=== PATIENT | female | born 1965 | race Caucasian/White ===

== ENCOUNTER 2021-04-09 23:52 | Inpatient (IN) | payer OTHER ==
[2021-04-10 00:17] VITALS: BMI 24.0
[2021-04-10] MEDS ORDERED: LACTATED RINGERS SOLUTION 1000 ML INFUS.BAG IV ONE (01:06)
[2021-04-10] MEDS ORDERED: OXYMETAZOLINE 0.05% NASAL SOLUTION 15 ML BOTTLE NS ONE ×2 (01:07→01:09)
[2021-04-10] MEDS ORDERED: morphine SULFATE IMMEDIATE RELEASE 30 MG TAB PO ONE (01:18)
[2021-04-10] MEDS ORDERED: morphine SULFATE IMMEDIATE RELEASE 30 MG TAB ONE (01:21)
[2021-04-10 01:46] LABS: HEMATOCRIT 40.2 % (32.4-45.2); HEMOGLOBIN 13.9 GM/dL (10.7-15.3); MCH 31.5 pg (25.7-33.7); MCHC 34.6 g/dl (32.0-36.0); PLATELET COUNT 203 10^3/uL (134-434); RBC 4.42 M/mm3 (3.60-5.2); RDW 12.9 % (11.6-15.6); WHITE BLOOD COUNT 8.3 K/mm3 (4.0-10.0)
[2021-04-10 01:47] LABS: BASO % 0.5 % (0-2.0); EOS % 1.4 % (0-4.5); LYMPH % 16.7 % (8-40); MEAN PLT VOLUME 6.7 fl (7.5-11.1); MONO % 4.3 % (3.8-10.2); NEUT % 77.1 % (42.8-82.8)
[2021-04-10 02:07] LABS: CHLORIDE 111 mmol/L (98-107); SODIUM 145 mmol/L (136-145)
[2021-04-10 02:09] LABS: CALCIUM 8.5 mg/dL (8.5-10.1)
[2021-04-10 02:10] LABS: ALBUMIN 3.7 g/dl (3.4-5.0); ANION GAP 7 MMOL/L (8-16); BLOOD UREA NITROGEN 20.9 mg/dL (7-18); CO2 27 mmol/L (21-32); GLUCOSE,RANDOM 108 mg/dL (74-106)
[2021-04-10 02:13] LABS: CREATININE 0.8 mg/dL (0.55-1.3); SGOT/AST 42 U/L (15-37); SGPT/ALT 59 U/L (13-61)
[2021-04-10 02:15] LABS: BILIRUBIN,TOTAL 0.3 mg/dL (0.2-1); TOT PROT 7.2 g/dl (6.4-8.2)
[2021-04-10 02:16] LABS: ALK PHOS 85 U/L (45-117)
[2021-04-10] MEDS ORDERED: POLYETHYLENE GLYCOL (HEALTHYLAX) 3350 17 GM PACKET PO PRN (02:34)
[2021-04-10] MEDS ORDERED: DEXTROSE 5%-NORMAL SALINE 1,000 ML IV SCH (02:45)
[2021-04-10] MEDS ORDERED: ACETAMINOPHEN INJECTION 100 ML IVPB ONE (03:35)
[2021-04-10] MEDS: ACETAMINOPHEN 1000 MG/100 ML VIAL IVPB PRN ×3 (03:37→16:43)
[2021-04-10] MEDS ORDERED: diazePAM 5 MG TABLET PO ONE (04:24)
[2021-04-10] MEDS ORDERED: ONDANSETRON 4 MG/2 ML VIAL IVPUSH PRN (08:34)
[2021-04-10] MEDS ORDERED: LORazepam 2 MG/ML SDV VIAL IVPUSH PRN (08:42)
[2021-04-10 08:55] LABS: BASO % 0.5 % (0-2.0); EOS % 1.8 % (0-4.5); HEMATOCRIT 34.6 % (32.4-45.2); HEMOGLOBIN 11.8 GM/dl (10.7-15.3); LYMPH % 21.5 % (8-40); MCH 31.4 pg (25.7-33.7); MCHC 34.1 g/dl (32.0-36.0); MEAN PLT VOLUME 7.1 fl (7.5-11.1); MONO % 9.1 % (3.8-10.2); NEUT % 67.1 % (42.8-82.8); PLATELET COUNT 168 10^3/uL (134-434); RBC 3.76 M/mm3 (3.60-5.2); RDW 11.8 % (11.6-15.6); WHITE BLOOD COUNT 6.7 K/mm3 (4.0-10.8)
[2021-04-10 09:01] LABS: ANION GAP 10 MMOL/L (8-16); CALCIUM 8.4 mg/dl (8.5-10); CHLORIDE 106 mmol/L (98-107); CO2 22 mmol/L (21-32); CREATININE 0.6 mg/dl (0.55-1.3); GLUCOSE,RANDOM 87 mg/dl (74-106); SODIUM 138 mmol/L (136-145)
[2021-04-10] MEDS ORDERED: THIAMINE HCL 200 MG/2 ML VIAL IVPB ONE ×2 (09:15→14:45)
[2021-04-10] MEDS ORDERED: POTASSIUM CHLORIDE TABS 20 MEQ TABLET.ER (FP) PO ONE (09:15)
[2021-04-10 09:29] LABS: ACTIVATED PTT 27.8 SECONDS (25.2-36.5); INR 1.04 (0.82-1.09); PROTHROMBIN TIME (PATIENT) 11.5 SEC (10.2-13.0)
[2021-04-10] MEDS: DEXTROSE 5%-NORMAL SALINE 1,000 ML IV SCH (09:40)
[2021-04-10] MEDS ORDERED: THIAMINE HCL 100 MG TABLET (FP) PO SCH (10:00)
[2021-04-10] MEDS: ENOXAPARIN NA (PORCINE) 40 MG/0.4 ML DISP.SYRIN SQ SCH (14:26)
[2021-04-10] MEDS: FLUoxetine HCL 20 MG CAPSULE PO SCH (14:27)
[2021-04-10] MEDS: FOLIC ACID 1 MG TABLET (FP) PO SCH (14:27)
[2021-04-10] MEDS: MULTIVITAMINS (DAILY MVI) TABLET (FP) PO SCH (14:27)
[2021-04-10] MEDS: metoPROLOL SUCCINATE 25 MG TAB.SR.24H (FP) PO SCH (14:27)
[2021-04-10] MEDS ORDERED: MAGNESIUM SULF 50% (8.12 MEQ/2 ML-1 GM VIAL) IVPB ONE (15:58)
[2021-04-10] MEDS ORDERED: OXYMETAZOLINE 0.05% NASAL SOLUTION 15 ML BOTTLE NS PRN (20:11)
[2021-04-10] MEDS: KETOROLAC TROMETHAMINE 15 MG/ML VIAL IVPUSH PRN (20:31)
[2021-04-10] MEDS: ATORVASTATIN CA 10 MG TABLET (FP) PO SCH (21:25)
[2021-04-10] MEDS: MONTELUKAST NA 10 MG TABLET PO SCH (21:25)
[2021-04-10] MEDS ORDERED: clonazePAM 0.5 MG TABLET PO SCH ×2 (22:00)
[2021-04-10] MEDS ORDERED: traZODone HCL 50 MG TABLET (FP) PO SCH ×2 (22:00)
[2021-04-11] MEDS: ACETAMINOPHEN 1000 MG/100 ML VIAL IVPB PRN ×3 (00:39→17:55)
[2021-04-11] MEDS: KETOROLAC TROMETHAMINE 15 MG/ML VIAL IVPUSH PRN (06:11)
[2021-04-11 08:01] LABS: CALCIUM 8.3 mg/dl (8.5-10); CREATININE 0.7 mg/dl (0.55-1.3); MAGNESIUM 2.1 mg/dL (1.8-2.4)
[2021-04-11] MEDS: THIAMINE HCL 100 MG TABLET (FP) PO SCH (09:20)
[2021-04-11] MEDS: FOLIC ACID 1 MG TABLET (FP) PO SCH (09:21)
[2021-04-11] MEDS: MULTIVITAMINS (DAILY MVI) TABLET (FP) PO SCH (09:21)
[2021-04-11] MEDS: metoPROLOL SUCCINATE 25 MG TAB.SR.24H (FP) PO SCH (09:21)
[2021-04-11] MEDS: ENOXAPARIN NA (PORCINE) 40 MG/0.4 ML DISP.SYRIN SQ SCH (09:41)
[2021-04-11] MEDS: FLUoxetine HCL 20 MG CAPSULE PO SCH (09:41)
[2021-04-11] MEDS: DEXTROSE 5%-NORMAL SALINE 1,000 ML IV SCH (09:42)
[2021-04-11 09:56] LABS: ALBUMIN 3.4 g/dl (3.4-5.0); BILIRUBIN,TOTAL 0.6 mg/dl (0.2-1); TOT PROT 5.8 g/dl (6.4-8.2)
[2021-04-11 10:00] LABS: BILIRUBIN,DIRECT 0.1 mg/dL (0.0-0.2)
[2021-04-11] MEDS ORDERED: LORazepam 1 MG TABLET PO PRN (10:36)
[2021-04-11] MEDS ORDERED: PNEUMOCOCCAL 23 VACCINE 0.5 ML VIAL IM ONE (11:00)
[2021-04-11] MEDS: LORazepam 1 MG TABLET PO SCH ×3 (11:41→22:47)
[2021-04-11] MEDS ORDERED: FLU VACC QS2021-22(6MOS UP)/PF 60 MCG/0.5 ML SYRINGE IM ONE (12:25)
[2021-04-11] MEDS ORDERED: PNEUMOC 13-VAL CONJ-DIP CRM/PF 0.5 ML DISP.SYRIN IM ONE (12:25)
[2021-04-11] MEDS ORDERED: LACTATED RINGERS SOLUTION 1,000 ML/1,000 ML INFUS.BAG IV SCH (13:15)
[2021-04-11] MEDS ORDERED: LIDOCAINE HCL 1%, 10 MG/ML (20ML VIAL) ONE (16:09)
[2021-04-11] MEDS ORDERED: EPINEPHrine/PF 1 MG/1 ML (1:1,000) AMPULE ONE (16:09)
[2021-04-11] MEDS ORDERED: LIDOCAINE 1%/EPI 1:100000 (20 ML MULTI DOSE VIAL) ONE (16:11)
[2021-04-11] MEDS ORDERED: ROCURONIUM BROMIDE 50 MG/5 ML SYRINGE ONE (16:16)
[2021-04-11] MEDS ORDERED: MIDAZOLAM HCL 2 MG/2 ML SINGLE DOSE VIAL ONE (16:16)
[2021-04-11] MEDS ORDERED: SUCCINYLCHOLINE CHLORIDE 200 MG/10 ML SYRINGE ONE (16:16)
[2021-04-11] MEDS ORDERED: LIDOCAINE 1% P/F 10 MG/ML VIAL ONE (16:19)
[2021-04-11] MEDS ORDERED: DEXMEDETOMIDINE HCL 200 MCG/2 ML IVPB ONE (16:19)
[2021-04-11] MEDS ORDERED: NEOSTIGMINE METHYLSULFATE 0.5 MG/1 ML - 10 ML MDV ONE (16:56)
[2021-04-11] MEDS ORDERED: ACETAMINOPHEN INJECTION 100 ML IVPB ONE (17:57)
[2021-04-11] MEDS ORDERED: ONDANSETRON 4 MG/2 ML VIAL ONE (17:59)
[2021-04-11] MEDS ORDERED: ceFAZolin SODIUM 1 GM VIAL ONE (20:51)
[2021-04-11] MEDS ORDERED: DEXTROSE 5%-WATER - 50 ML IVPB ONE (20:52)
[2021-04-11] MEDS: MONTELUKAST NA 10 MG TABLET PO SCH (20:59)
[2021-04-11] MEDS: ATORVASTATIN CA 10 MG TABLET (FP) PO SCH (21:00)
[2021-04-11] MEDS: CEFAZOLIN 1 GM in DEXTROSE 5%-WATER - 1 GM/50 ML IVPB IVPB SCH (21:56)
[2021-04-12] MEDS: oxyCODONE HCL 5 MG TABLET PO PRN ×2 (02:05→08:54)
[2021-04-12] MEDS ORDERED: ceFAZolin SODIUM 1 GM VIAL ONE ×4 (04:39→22:31)
[2021-04-12] MEDS ORDERED: DEXTROSE 5%-WATER - 50 ML IVPB ONE ×4 (04:40→22:31)
[2021-04-12] MEDS: CEFAZOLIN 1 GM in DEXTROSE 5%-WATER - 1 GM/50 ML IVPB IVPB SCH ×4 (05:22→22:35)
[2021-04-12] MEDS: LORazepam 1 MG TABLET PO SCH ×4 (05:22→22:36)
[2021-04-12] MEDS: FOLIC ACID 1 MG TABLET (FP) PO SCH (09:02)
[2021-04-12] MEDS: THIAMINE HCL 100 MG TABLET (FP) PO SCH (09:02)
[2021-04-12] MEDS: FLUoxetine HCL 20 MG CAPSULE PO SCH (09:02)
[2021-04-12] MEDS: MULTIVITAMINS (DAILY MVI) TABLET (FP) PO SCH (09:03)
[2021-04-12] MEDS: metoPROLOL SUCCINATE 25 MG TAB.SR.24H (FP) PO SCH (09:03)
[2021-04-12] MEDS: POLYETHYLENE GLYCOL (HEALTHYLAX) 3350 17 GM PACKET PO SCH (10:59)
[2021-04-12] MEDS: ENOXAPARIN NA (PORCINE) 40 MG/0.4 ML DISP.SYRIN SQ SCH (11:35)
[2021-04-12] MEDS ORDERED: PNEUMOCOCCAL 23 VACCINE 0.5 ML VIAL IM ONE (12:00)
[2021-04-12] MEDS: ACETAMINOPHEN 1000 MG/100 ML VIAL IVPB PRN ×2 (16:08→21:10)
[2021-04-12] MEDS: ATORVASTATIN CA 10 MG TABLET (FP) PO SCH (21:09)
[2021-04-12] MEDS: MONTELUKAST NA 10 MG TABLET PO SCH (21:09)
[2021-04-13] MEDS: oxyCODONE HCL 5 MG TABLET PO PRN ×4 (01:54→22:11)
[2021-04-13] MEDS: LORazepam 1 MG TABLET PO SCH ×4 (05:46→22:12)
[2021-04-13 08:10] LABS: BASO % 2.6 % (0-2.0); EOS % 1.7 % (0-4.5); HEMATOCRIT 37.3 % (32.4-45.2); HEMOGLOBIN 12.5 GM/dl (10.7-15.3); LYMPH % 14.5 % (8-40); MCH 30.9 pg (25.7-33.7); MCHC 33.6 g/dl (32.0-36.0); MEAN CELL VOLUME 91.9 fl (80-96); MEAN PLT VOLUME 7.1 fl (7.5-11.1); MONO % 7.7 % (3.8-10.2); NEUT % 73.5 % (42.8-82.8); PLATELET COUNT 192 10^3/uL (134-434); RBC 4.06 M/mm3 (3.60-5.2); RDW 11.9 % (11.6-15.6)
[2021-04-13 08:15] LABS: ALBUMIN 3.4 g/dl (3.4-5.0); BILIRUBIN,TOTAL 0.5 mg/dl (0.2-1); CALCIUM 8.6 mg/dl (8.5-10); CREATININE 0.7 mg/dl (0.55-1.3); MAGNESIUM 1.9 mg/dL (1.8-2.4); PHOSPHOROUS 3.2 mg/dl (2.5-4.9)
[2021-04-13] MEDS: ENOXAPARIN NA (PORCINE) 40 MG/0.4 ML DISP.SYRIN SQ SCH (09:03)
[2021-04-13] MEDS: FLUoxetine HCL 20 MG CAPSULE PO SCH (09:03)
[2021-04-13] MEDS: POLYETHYLENE GLYCOL (HEALTHYLAX) 3350 17 GM PACKET PO SCH (09:03)
[2021-04-13] MEDS: THIAMINE HCL 100 MG TABLET (FP) PO SCH (09:04)
[2021-04-13] MEDS: FOLIC ACID 1 MG TABLET (FP) PO SCH (09:04)
[2021-04-13] MEDS: metoPROLOL SUCCINATE 25 MG TAB.SR.24H (FP) PO SCH ×2 (09:04→21:27)
[2021-04-13] MEDS: MULTIVITAMINS (DAILY MVI) TABLET (FP) PO SCH (09:04)
[2021-04-13] MEDS: SENNOSIDES/DOCUSATE COMBO (SENNA PLUS) TABLET (UD) PO SCH ×2 (11:15→21:24)
[2021-04-13] MEDS: ACETAMINOPHEN 1000 MG/100 ML VIAL IVPB PRN ×2 (11:27→19:53)
[2021-04-13] MEDS: MONTELUKAST NA 10 MG TABLET PO SCH (21:24)
[2021-04-13] MEDS: ATORVASTATIN CA 10 MG TABLET (FP) PO SCH (21:24)
[2021-04-14] MEDS ORDERED: LORazepam 0.5 MG TABLET PO PRN
[2021-04-14] MEDS: LORazepam 0.5 MG TABLET PO SCH ×4 (05:37→23:05)
[2021-04-14] MEDS: ACETAMINOPHEN 1000 MG/100 ML VIAL IVPB PRN (05:42)
[2021-04-14] MEDS: oxyCODONE HCL 5 MG TABLET PO PRN ×4 (07:07→20:22)
[2021-04-14] MEDS: ENOXAPARIN NA (PORCINE) 40 MG/0.4 ML DISP.SYRIN SQ SCH (09:42)
[2021-04-14] MEDS: THIAMINE HCL 100 MG TABLET (FP) PO SCH (09:43)
[2021-04-14] MEDS: MULTIVITAMINS (DAILY MVI) TABLET (FP) PO SCH (09:43)
[2021-04-14] MEDS: FOLIC ACID 1 MG TABLET (FP) PO SCH (09:43)
[2021-04-14] MEDS: FLUoxetine HCL 20 MG CAPSULE PO SCH (09:44)
[2021-04-14] MEDS: metoPROLOL SUCCINATE 25 MG TAB.SR.24H (FP) PO SCH ×2 (09:44→21:24)
[2021-04-14] MEDS: SENNOSIDES/DOCUSATE COMBO (SENNA PLUS) TABLET (UD) PO SCH ×2 (09:45→21:24)
[2021-04-14] MEDS: POLYETHYLENE GLYCOL (HEALTHYLAX) 3350 17 GM PACKET PO SCH (09:45)
[2021-04-14] MEDS: ACETAMINOPHEN 325 MG TABLET (FP) PO PRN ×2 (13:35→20:21)
[2021-04-14] MEDS: MONTELUKAST NA 10 MG TABLET PO SCH (21:24)
[2021-04-14] MEDS: ATORVASTATIN CA 10 MG TABLET (FP) PO SCH (21:24)
[2021-04-15] MEDS ORDERED: LORazepam 0.5 MG TABLET PO ONE (05:00)
[2021-04-15] MEDS: ACETAMINOPHEN 325 MG TABLET (FP) PO PRN (05:54)
[2021-04-15 06:32] VITALS: BP 148/92; PULSE 76; TEMP 98.7
[2021-04-15] MEDS: FOLIC ACID 1 MG TABLET (FP) PO SCH (10:47)
[2021-04-15] MEDS: POLYETHYLENE GLYCOL (HEALTHYLAX) 3350 17 GM PACKET PO SCH (10:47)
[2021-04-15] MEDS: metoPROLOL SUCCINATE 25 MG TAB.SR.24H (FP) PO SCH (10:48)
[2021-04-15] MEDS: MULTIVITAMINS (DAILY MVI) TABLET (FP) PO SCH (10:48)
[2021-04-15] MEDS: SENNOSIDES/DOCUSATE COMBO (SENNA PLUS) TABLET (UD) PO SCH (10:48)
[2021-04-15] MEDS: ENOXAPARIN NA (PORCINE) 40 MG/0.4 ML DISP.SYRIN SQ SCH (10:48)
[2021-04-15] MEDS: THIAMINE HCL 100 MG TABLET (FP) PO SCH (10:48)
[2021-04-15] MEDS: FLUoxetine HCL 20 MG CAPSULE PO SCH (10:48)
== END 2021-04-15 10:49 | disposition home or self-care (01) | DRG 115 ==
LOC: FER 23:52 → FM/S 04-10 06:55 → OBSVTOIN 04-12 13:45
PROVIDERS: ATTEND Nurse Practitioner Acute Care
PROC: HZ2ZZZZ Detoxification Services for Substance Abuse Treatment (ICD-10-PCS; principal; 2021-04-10)
PROC: 0NSB3ZZ Reposition Nasal Bone, Percutaneous Approach (ICD-10-PCS; 2021-04-11)
DX: S02.2XXA Fracture of nasal bones, initial encounter for closed fracture (principal); R55 Syncope and collapse; F32.A Depression, unspecified; I10 Essential (primary) hypertension; J45.909 Unspecified asthma, uncomplicated; F10.20 Alcohol dependence, uncomplicated; E78.5 Hyperlipidemia, unspecified; R11.2 Nausea with vomiting, unspecified; Y90.7 Blood alcohol level of 200-239 mg/100 ml; W18.39XA Other fall on same level, initial encounter; Y92.89 Other specified places as the place of occurrence of the external cause
CPT/HCPCS: 36415; 70450-TC; 70486-TC; 71045-TC-FY; 72125-TC; 80048; 80053; 80076; 80307; 81003; 82550; 82553; 83735; 84100; 84484; 85025; 85610; 85730; 87070; 87205; 90686; 90732; 93005; 94760; 97116-GP; 97162-GP; 99285-25; C9803; G0009; G0378; J0131; U0003; U0005